=== PATIENT | male | born 1950 | race Caucasian/White ===

== ENCOUNTER 2019-03-17 09:01 | Emergency (ER) | payer MEDICARE ==
[~2019-03-17] VITALS: Ht 172.7 cm; Wt 80.0 kg
[2019-03-17 09:14] VITALS: BP 148/72
== END 2019-03-17 10:34 | disposition home or self-care (01) ==
LOC: ER 09:02
DX: R19.7 Diarrhea, unspecified (principal); M54.5 Low back pain; L82.1 Other seborrheic keratosis
CPT/HCPCS: 99281